=== PATIENT | male | born 1960 | race Hispanic/Latino ===

== ENCOUNTER 2024-01-30 09:34 | Emergency (ER) | payer OTHER ==
[~2024-01-30] VITALS: Ht 165.1 cm; Wt 90.7 kg
[~2024-01-30 09:34] MED LIST: ASPIRIN81 MG PO; GLIMEPIRIDE2 MG PO; LOVASTATIN20 MG PO; STOOL SOFTENER100 MG PO; VASOTEC10 MG PO
[2024-01-30 09:40] VITALS: TEMP 99.1
[2024-01-30] MEDS: HYDROCODONE/APAP 7.5MG-325MG 1 EA TAB PO ONE (10:04)
[2024-01-30 11:43] VITALS: PULSE 75; RESP 18; O2SAT 97
[2024-01-30] MEDS ORDERED: IBUPROFEN600 MG PO (12:19)
[2024-01-30] MEDS ORDERED: HYDROCODON-ACE1 EA11 PO (12:19)
== END 2024-01-30 13:00 | disposition home or self-care (01) ==
LOC: ER 09:38
DX: R50.9 Fever, unspecified (principal); S22.42XA Multiple fractures of ribs, left side, initial encounter for closed fracture; R91.8 Other nonspecific abnormal finding of lung field; W01.0XXA Fall on same level from slipping, tripping and stumbling without subsequent striking against object, initial encounter; Y93.01 Activity, walking, marching and hiking; Y92.89 Other specified places as the place of occurrence of the external cause; I10 Essential (primary) hypertension; E11.9 Type 2 diabetes mellitus without complications
CPT/HCPCS: 70450; 71250; 72125; 99283